=== PATIENT | female | born 1975 | race Caucasian/White ===

== ENCOUNTER 2019-11-08 10:55 | Emergency (ER) | payer BC ==
--- NOTE | 2019-11-08 12:44 | UC ---
Throat Pain/Nasal Dinh HPI - HPI Summary HPI Summary: 44 yo female presents with flu-like symptoms. She tells me that late last week she developed fatigue, body aches, and dry cough. 4 days ago had 2 days of loose stools and nausea, which have resolved. She is feeling better overall, but is still very fatigued and has some body aches. Has been taking sudafed and mucinex with no relief. Denies fever, sore throat, SOB, chest pain, abdominal pain, n/v. - History of Current Complaint Stated Complaint: CHILLS CONGESTION Time Seen by Provider: 11/08/19 12:44 Hx Obtained From: Patient Hx Last Menstrual Period: 04/08/13 Onset/Duration: Sudden Onset Severity: Moderate Pain Intensity: 8 Pain Scale Used: 0-10 Numeric - Allergies/Home Medications Allergies/Adverse Reactions: Allergies Allergy/AdvReac Type Severity Reaction Status Date / Time No Known Allergies Allergy Verified 11/08/19 12:48 PMH/Surg Hx/FS Hx/Imm Hx - Additional Past Medical History Additional PMH: None - Surgical History Surgical History: None - Family History Known Family History: Positive: None - Social History Occupation: Employed Full-time Lives: With Family Alcohol Use: Occasionally Substance Use Type: None Smoking Status (MU): Never Smoked Tobacco Review of Systems All Other Systems Reviewed And Are Negative: No Constitutional: Positive: Fatigue, Other - Body aches Skin: Positive: Negative Eyes: Positive: Negative ENT: Positive: Sinus Pain/Tenderness Respiratory: Positive: Cough Cardiovascular: Positive: Negative Gastrointestinal: Positive: Negative Neurovascular: Positive: Negative Neurological: Positive: Negative Psychological: Positive: Negative Physical Exam - Summary Physical Exam Summary: GENERAL: NAD. WDWN. No pain distress. SKIN: No rashes, sores, lesions, or open wounds. HEENT: Head: AT/NC Eyes: EOM intact. Conjunctiva clear without inflammation or discharge. Ears: Hearing grossly normal. TMs intact, no bulging, erythema, or edema. Nose: Nasal mucosa pink and moist. NTTP maxillary and frontal sinus. Throat: Posterior oropharynx without exudates, erythema, or tonsillar enlargement. Uvula midline. NECK: Supple. Nontender. No lymphadenopathy. CHEST: CTAB. No r/r/w. No accessory muscle use. Breathing comfortably and in no distress. CV: RRR. Pulses intact. Cap refill <2seconds NEURO: Alert. PSYCH: Age appropriate behavior. Triage Information Reviewed: Yes Vital Signs: Vital Signs: Temp Pulse Resp BP Pulse Ox 97.8 F 64 16 133/71 100 11/08/19 12:46 11/08/19 12:46 11/08/19 12:46 11/08/19 12:46 11/08/19 12:46 Laboratory Tests 11/08/19 12:42 Influenza A (Rapid) Positive A Vital Signs Reviewed: Yes Throat Pain/Nasal Course/Dx - Course Course Of Treatment: POC flu positive. Advised supportive care. Rx for tessalon for dry cough. No work this wednesday as she works at [employer] - Differential Dx/Diagnosis Provider Diagnosis: Influenza Discharge ED - Sign-Out/Discharge Documenting (check all that apply): Patient Departure All imaging exams completed and their final reports reviewed: No Studies - Discharge Plan Condition: Stable Disposition: HOME Prescriptions: Benzonatate CAP* [Tessalon 100 MG CAP*] 100 mg PO TID PRN #21 cap PRN Reason: Cough Patient Education Materials: Influenza (ED) Forms: *Work Release Referrals: No Primary Care Phys,NOPCP [Primary Care Provider] - Additional Instructions: If you develop a fever, shortness of breath, chest pain, new or worsening symptoms - please call your PCP or go to the ED immediately. Your blood pressure was high at todays visit. Please see your primary provider within 4 weeks for recheck and re-evaluation. Most people with the flu recover within one to two weeks without treatment. However, serious complications of the flu can occur. Go to the ER immediately if you: -- You feel short of breath or have trouble breathing -- You have pain or pressure in your chest or stomach -- You have signs of being dehydrated, such as dizziness when standing or not passing urine -- You feel confused -- You cannot stop vomiting or you cannot drink enough fluids There are several groups of people who are at increased risk for flu complications. These include women, young children (<5 years of age and especially <2 years of age), people older than 65 years of age, and people with certain diseases such as chronic lung disease (such as asthma), heart disease, diabetes, immunosuppressing conditions (such as HIV infection or transplantation), and some other diseases. Treat symptoms Treating the symptoms of influenza can help you to feel better but will not make the flu go away faster. -- Rest until the flu is fully resolved, especially if the illness has been severe. -- Fluids Drink enough fluids so that you do not become dehydrated. One way to immigration judge if you are drinking enough is to look at the color of your urine. Normally, urine should be light yellow to nearly colorless. If you are drinking enough, you should pass urine every three to five hours. -- Acetaminophen (sample brand name: Tylenol) can relieve fever, headache, and muscle aches. Aspirin and medicines that include aspirin (eg, bismuth subsalicylate [sample brand name: Pepto-Bismol]) are not recommended for children under 18 because aspirin can lead to a serious disease called Anuja syndrome. -- Cough medicines are not usually helpful; cough usually resolves without treatment. We do not recommend cough or cold medicine for children under age 6 years. Antiviral treatment Antiviral medicines can be used to treat or prevent influenza. When used as a treatment, the medicine does not eliminate flu symptoms, although it can reduce the severity and duration of symptoms by about one day. Not every person with influenza needs an antiviral medicine, but some people do; the decision is based upon several factors. If you are severely ill and/or have risk factors for developing complications of influenza, you will need an antiviral agent. People who are only mildly ill and have no risk factors for complications usually do not need to be treated with antiviral medication. - Billing Disposition and Condition Condition: STABLE Disposition: Home - Attestation Statements Provider Attestation: This patient was not seen by me. I was available for consult. Chart reviewed. JAI
[2019-11-08 12:48] VITALS: BP 133/71
[2019-11-08 12:48] LABS: Influenza A Molecular POSITIVE (Negative)
== END 2019-11-08 13:01 | disposition home or self-care (01) ==
LOC: UCEAST 10:55
DX: J11.1 Influenza due to unidentified influenza virus with other respiratory manifestations (principal)
CPT/HCPCS: 99212; G0463